=== PATIENT | female | born 1950 | race African-American/Black ===

== ENCOUNTER 2016-02-23 13:32 | Emergency (ER) | payer OTHER ==
[~2016-02-23] VITALS: Ht 162.6 cm; Wt 151.1 kg
--- NOTE | ~2016-02-23 | EKG ---
[facility] [place] [address] ELECTROCARDIOGRAM REPORT Name: LING CASTRO Room #: DEP [facility] [id number] Admission: 02/23/16 Attend Phys: Discharge: 02/23/16 Date of : 52 Report #: [id number] THIS REPORT FOR: //name// [facility] ED Test Date: 2016-02-23 Test Time: 14:04:53 Pat Name: LING CASTRO Department: Room: Gender: F Confectionery Cooker: Stacy SOLIS : 1950 Requested By: Quentin Mills Order Number: [id number] MD: Hosea Jose Measurements Intervals [place] Rate: 73 P: IL: QRS: -25 QRSD: 109 T: 92 QT: 392 QTc: 432 Interpretive Statements Sinus rhythm Borderline left axis deviation Low voltage, precordial leads No previous ECG available for comparison Electronically Signed On 02-24-2016 7:58:10 COMMAND AND CONTROL SPECIALIST by Hosea Jose [email or web address] <ELECTRONICALLY SIGNED> By: Hosea Jose MD, [facility] 02/24/16 0758 1404 1404 Hosea Jose MD, FACC /EPI
[~2016-02-23 13:32] MED LIST: ACETAMINOPHEN325 M1 PO; ADVAIR HFA115 MCG/21 INH; APAP500 PO; ASPIRIN EC81 M1 PO; AVELOX 400 MG400 MG PO; AVELOX400 MG PO; CALCIUM + VIT1 EACH; CARDURA XL8 MG PO; CARDURA8 MG PO; CARVEDILOL6.25 MG PO; CHLORTHALIDONE25 MG PO; CLARITIN10 M2 PO; COMBIGAN EYE DR10 ML OPHTHALMIC; COMBIVENT INH; COZAAR100 MG PO; CRESTOR10 MG PO; CYCLOBENZAPRINE5 MG PO; DIOVAN 80 MG TA80 M1 PO; DUONEB 2.5-0.5 M3 ML INH; ECONOPRED PLUS10 M1; FELODIPINE ER10 MG PO; FLONASE; FLONASE 0.05%50 MCG NASAL; GLYCOLAX POWDER17 G1 PO; HUMALOG100 UNIT/1 SUBQ; HYDROCODONE-APA1 TA1 PO; IBUPROFEN 400400 M1 PO; IBUPROFEN 800800 M1 PO; IRON325 PO; JANUVIA100 MG PO; LAMISIL250 MG PO; LANTUS SUBQ; LANTUS100 UNIT/M SQ; LASIX 40 MG TAB40 M1 PO; LOPRESSOR 50 MG50 M1 PO; LYRICA100 MG PO; MUCINEX TA600 MG/TA2 PO; MULTIVIT &0.5 MG/1 M; NEURONTIN 300300 M1 PO; NEURONTIN600 MG PO; NEXIUM40 MG PO; NORCO 5-325 TA1 EACH PO; NOVOLOG100 UNIT/1 SUBQ; NYSTATIN 1100000 U/M; OXYCODON-ACETA1 EAC1 PO; PLENDIL10 MG PO; POTASSIUM CHLO20 ME1 PO; PRED-FORTE OPHTH1 M1 OPHTHALMIC; PREDNISONE 10 M10 M1; PREDNISONE 10 M10 M1 PO; PREDNISONE 20 M20 M1 PO; PREDNISONE 5 MG5 M1 PO; PROVENTIL INH; TESSALON PERLE100 MG PO; TESSALON200 MG PO; TRAMADOL 50 MG50 MG PO; VALIUM5 MG PO; VITAMIN D400 UNI1 PO; ZETIA10 MG PO; ZPAK PO; ZYRTEC10 M2 PO
[2016-02-23 14:19] LABS: ABSOLUTE NEUTROPHILS 5.3 thou/uL (1.4-8.2); EOSINOPHILS 1.5 % (0.0-3.0); HEMATOCRIT 35.4 % (37.0-47.0); HEMOGLOBIN 11.1 gm/dL (12.0-15.0); MANUAL DIFF NO; MCH 27.1 pg (26.0-34.0); MCHC 31.3 % (28.0-37.0); MCV 86.8 fL (80.0-100.0); MONOCYTES 8.3 % (1.0-8.0); PLATELET COUNT 241 thou/uL (150-400); POLYS 69.2 % (36.0-66.0); RBC 4.08 mil/uL (4.20-5.00); RDW 14.8 % (10.5-14.5); WBC 7.6 thou/uL (4.0-11.0)
[2016-02-23 14:29] LABS: ANION GAP 6 mmol/L (7-16); BUN 27 mg/dL (7-18); CALCIUM 8.8 mg/dL (8.5-10.1); CHLORIDE 106 mmol/L (98-107); CO2 31 mmol/L (21-32); CREATININE 1.4 mg/dL (0.6-1.3); GLUCOSE 198 mg/dL (70-99); POTASSIUM 3.9 mmol/L (3.5-5.1); SODIUM 143 mmol/L (136-145)
[2016-02-23 14:36] LABS: ALBUMIN 3.3 g/dL (3.4-5.0); ALKALINE PHOSPHATASE 90 U/L (46-116); SGOT < 5 U/L (15-37); SGPT 14 U/L (30-65); TOTAL BILIRUBIN 0.3 mg/dL (<0.1-1.0); TROPONIN-I < 0.04 ng/mL (<0.04-0.07)
[2016-02-23] MEDS ORDERED: HYDROCODONE-AP1 EAC6 PO (15:12)
[2016-02-23 16:09] VITALS: BP 132/66
== END 2016-02-23 16:12 | disposition home or self-care (01) ==
LOC: ER 13:32
PROVIDERS: Physician Assistant
DX: S63.92XA Sprain of unspecified part of left wrist and hand, initial encounter (principal); S83.92XA Sprain of unspecified site of left knee, initial encounter; S20.219A Contusion of unspecified front wall of thorax, initial encounter; M54.5 Low back pain; M25.552 Pain in left hip; K21.9 Gastro-esophageal reflux disease without esophagitis; I10 Essential (primary) hypertension; E11.9 Type 2 diabetes mellitus without complications; Z90.710 Acquired absence of both cervix and uterus; Z88.5 Allergy status to narcotic agent; Z88.0 Allergy status to penicillin; W06.XXXA Fall from bed, initial encounter; Y93.89 Activity, other specified; Y92.89 Other specified places as the place of occurrence of the external cause; Y99.8 Other external cause status

== ENCOUNTER → 2016-06-23 | Outpatient (CLI) | payer OTHER ==
[~2016-06-23] MED LIST changes: +HYDROCODONE-AP1 EAC6 PO
== END ==
LOC: ULTRA 02:53
DX: R06.02 Shortness of breath (principal); M79.89 Other specified soft tissue disorders

== ENCOUNTER → 2016-07-10 | Outpatient (CLI) | payer OTHER | LOC: MRI 13:48 | DX: I63.9 Cerebral infarction, unspecified (principal); H53.8 Other visual disturbances ==

== ENCOUNTER 2016-10-11 16:20 | Emergency (ER) | payer OTHER ==
[~2016-10-11] VITALS: Ht 162.6 cm; Wt 105.7 kg
[2016-10-11 16:47] LABS: URINE BILIRUBIN NEGATIVE (Negative); URINE BLOOD TRACE (Negative); URINE COLOR YELLOW; URINE GLUCOSE-RANDOM* NEGATIVE (Negative); URINE KETONES NEGATIVE (Negative); URINE NITRITE NEGATIVE (Negative); URINE PROTEIN (DIPSTICK) TRACE (Negative); URINE SPECIFIC GRAVITY 1.015 (1.003-1.035); URINE UROBILINOGEN 0.2 E.U./dl (0.2-1.0)
[2016-10-11 18:17] LABS: ABSOLUTE NEUTROPHILS 6.7 thou/uL (1.4-8.2); BASOPHILS 0.8 % (0.0-2.0); EOSINOPHILS 0.6 % (0.0-3.0); HEMOGLOBIN 11.9 gm/dL (12.0-15.0); LYMPHOCYTES 17.2 % (24.0-44.0); MCH 26.7 pg (26.0-34.0); MCHC 31.4 g/dL (28.0-37.0); MCV 84.9 fL (80.0-100.0); MONOCYTES 8.2 % (1.0-8.0); PLATELET COUNT 233 thou/uL (150-400); POLYS 73.2 % (36.0-66.0); RBC 4.48 mil/uL (4.20-5.00); RDW 14.8 % (10.5-14.5); WBC 9.1 thou/uL (4.0-11.0)
[2016-10-11 18:19] LABS: MANUAL DIFF NO
[2016-10-11 18:24] LABS: CALCIUM 9.6 mg/dL (8.5-10.1); CREATININE 1.1 mg/dL (0.6-1.0); POTASSIUM 3.8 mmol/L (3.5-5.1)
[2016-10-11 18:30] LABS: ALBUMIN 3.7 g/dL (3.4-5.0); DIRECT BILIRUBIN 0.2 mg/dL (<0.1-0.3); TOTAL BILIRUBIN 0.8 mg/dL (<0.1-1.0); TOTAL PROTEIN 8.1 g/dL (6.4-8.2)
[2016-10-11] MEDS ORDERED: PHENAZOPYRIDIN200 M2 PO (19:01)
[2016-10-11 19:07] VITALS: BP 167/72
== END 2016-10-11 19:14 | disposition home or self-care (01) ==
LOC: ER 16:20
PROVIDERS: Nurse Practitioner
DX: R35.0 Frequency of micturition (principal); I10 Essential (primary) hypertension; K21.9 Gastro-esophageal reflux disease without esophagitis; E11.9 Type 2 diabetes mellitus without complications; Z90.710 Acquired absence of both cervix and uterus; Z88.0 Allergy status to penicillin; Z88.5 Allergy status to narcotic agent

== ENCOUNTER → 2017-03-29 | Outpatient (CLI) | payer OTHER ==
[~2017-03-29] MED LIST changes: +PHENAZOPYRIDIN200 M2 PO; +ZOFRAN ODT4 MG PO
== END ==
LOC: ULTRA 03-23 08:04
DX: N28.1 Cyst of kidney, acquired (principal)

== ENCOUNTER 2017-04-30 19:31 | Emergency (ER) | payer OTHER ==
[~2017-04-30] VITALS: Ht 162.6 cm; Wt 156.0 kg
[~2017-04-30 19:31] MED LIST changes: -ZOFRAN ODT4 MG PO
[2017-04-30] MEDS ORDERED: NORCO 5-325 TA1 EACH PO (20:34)
[2017-04-30] MEDS ORDERED: ZOFRAN ODT4 MG PO (20:34)
[2017-04-30 21:26] VITALS: BP 146/69
== END 2017-04-30 21:27 | disposition home or self-care (01) ==
LOC: ER 19:31
DX: S32.592A Other specified fracture of left pubis, initial encounter for closed fracture (principal); E11.9 Type 2 diabetes mellitus without complications; G47.30 Sleep apnea, unspecified; I10 Essential (primary) hypertension; K21.9 Gastro-esophageal reflux disease without esophagitis; Z88.5 Allergy status to narcotic agent; Z88.0 Allergy status to penicillin; Z79.4 Long term (current) use of insulin; W01.0XXA Fall on same level from slipping, tripping and stumbling without subsequent striking against object, initial encounter; Y93.89 Activity, other specified; Y92.89 Other specified places as the place of occurrence of the external cause; Y99.8 Other external cause status

== ENCOUNTER → 2017-07-06 | Outpatient (CLI) | payer OTHER ==
[~2017-07-06] MED LIST changes: +ZOFRAN ODT4 MG PO
== END ==
LOC: CAT 06-30 06:56
DX: M24.652 Ankylosis, left hip (principal); M16.12 Unilateral primary osteoarthritis, left hip; Z91.81 History of falling

== ENCOUNTER → 2018-02-25 | Outpatient (CLI) | payer OTHER | LOC: ULTRA 02-15 13:16 | DX: K76.0 Fatty (change of) liver, not elsewhere classified (principal) ==

== ENCOUNTER → 2018-03-22 | Outpatient (CLI) | payer OTHER | LOC: RAD 10:49 | DX: M17.0 Bilateral primary osteoarthritis of knee (principal); M25.761 Osteophyte, right knee; M25.762 Osteophyte, left knee; M25.462 Effusion, left knee ==

== ENCOUNTER 2018-03-28 14:23 | Emergency (ER) | payer OTHER ==
[~2018-03-28] VITALS: Ht 162.6 cm; Wt 149.7 kg
[2018-03-28] MEDS ORDERED: NORFLEX100 MG PO (16:59)
[2018-03-28] MEDS ORDERED: PREDNISONE 10 M10 MG PO (16:59)
[2018-03-28] MEDS ORDERED: HYDROCODONE-AP1 EAC6 PO (17:01)
[2018-03-28 17:16] VITALS: BP 189/83
== END 2018-03-28 17:17 | disposition home or self-care (01) ==
LOC: ER 14:23
DX: M54.31 Sciatica, right side (principal); E11.9 Type 2 diabetes mellitus without complications; G47.30 Sleep apnea, unspecified; I10 Essential (primary) hypertension; K21.9 Gastro-esophageal reflux disease without esophagitis; Z88.5 Allergy status to narcotic agent; Z88.0 Allergy status to penicillin; Z90.710 Acquired absence of both cervix and uterus; Z79.4 Long term (current) use of insulin

== ENCOUNTER → 2018-10-13 | Outpatient (CLI) | payer OTHER ==
[~2018-10-13] MED LIST changes: +NORFLEX100 MG PO; +PREDNISONE 10 M10 MG PO
== END ==
LOC: RAD 09:11
DX: Z12.31 Encounter for screening mammogram for malignant neoplasm of breast (principal)

== ENCOUNTER → 2018-12-30 | Outpatient (CLI) | payer OTHER | LOC: CAT 12-26 10:16 | DX: J98.4 Other disorders of lung (principal) ==

== ENCOUNTER 2019-03-22 14:00 | Emergency (ER) | payer OTHER ==
[~2019-03-22] VITALS: Ht 162.6 cm; Wt 146.5 kg
[2019-03-22] MEDS ORDERED: NORCO 5-325 TA1 EAC1 PO (15:56)
[2019-03-22] MEDS ORDERED: CYCLOBENZAPRINE5 MG PO (15:56)
[2019-03-22 16:27] VITALS: BP 159/74
== END 2019-03-22 16:30 | disposition home or self-care (01) ==
LOC: ER 14:00
DX: S16.1XXA Strain of muscle, fascia and tendon at neck level, initial encounter (principal); M54.89 Other dorsalgia; M79.632 Pain in left forearm; I10 Essential (primary) hypertension; R51 Headache; G47.30 Sleep apnea, unspecified; Z88.5 Allergy status to narcotic agent; Z88.0 Allergy status to penicillin; Z90.710 Acquired absence of both cervix and uterus; V89.0XXA Person injured in unspecified motor-vehicle accident, nontraffic, initial encounter; Y93.89 Activity, other specified; Y92.89 Other specified places as the place of occurrence of the external cause; Y99.8 Other external cause status

== ENCOUNTER → 2019-04-07 | Outpatient (CLI) | payer OTHER ==
[~2019-04-07] MED LIST changes: +NORCO 5-325 TA1 EAC1 PO
== END ==
LOC: NUC 11:23
DX: M53.82 Other specified dorsopathies, cervical region (principal)

== ENCOUNTER 2019-10-24 06:56 | Inpatient (IN) | payer OTHER ==
[~2019-10-24] VITALS: Ht 160 cm; Wt 145.1 kg
[2019-10-24] VITALS (18 sets, daily range): BP systolic 128–215; BP diastolic 55–162
[2019-10-24 07:47] LABS: BASOPHILS 0.4 % (0.0-2.0); HEMATOCRIT 38.8 % (37.0-47.0); HEMOGLOBIN 12.2 gm/dL (12.0-15.0); LYMPHOCYTES 9.7 % (24.0-44.0); MCH 28.3 pg (26.0-34.0); MCHC 31.4 g/dL (28.0-37.0); MCV 90.1 fL (80.0-100.0); MONOCYTES 5.8 % (1.0-8.0); PLATELET COUNT 199 thou/uL (150-400); POLYS 84.1 % (36.0-66.0); RDW 14.4 % (10.5-14.5); WBC 8.3 thou/uL (4.0-11.0)
[2019-10-24 07:54] LABS: BE(vivo) -9.4 mmol/L (-2 to +3); HCO3 15.2 mmol/L (22.0-26.0); PCO2 29.5 mmHg (35.0-45.0); PO2 57.3 mmHg (80.0-100.0); pH 7.331 (7.360-7.450); sO2 88.5 % (92.0-98.0)
[2019-10-24 07:56] LABS: ANION GAP 16 mmol/L (7-16); BUN 28 mg/dL (7-18); CALCIUM 8.5 mg/dL (8.5-10.1); CHLORIDE 103 mmol/L (98-107); CO2 21 mmol/L (21-32); CREATININE 1.9 mg/dL (0.6-1.0); GLUCOSE 403 mg/dL (74-106); POTASSIUM 3.8 mmol/L (3.5-5.1); SODIUM 140 mmol/L (136-145)
[2019-10-24] MEDS ORDERED: JANUVIA25 MG PO (07:59)
[2019-10-24 08:00] LABS: ALBUMIN 3.1 g/dL (3.4-5.0); DIRECT BILIRUBIN 0.2 mg/dL (<0.1-0.2); MAGNESIUM 1.9 mg/dL (1.8-2.4); TOTAL BILIRUBIN 0.4 mg/dL (0.2-1.0); TOTAL PROTEIN 7.3 g/dL (6.4-8.2)
[2019-10-24 08:05] LABS: TROPONIN-I <0.06 ng/mL (<0.06)
--- NOTE | 2019-10-24 08:19 | EKG ---
[facility] [place] [address] ELECTROCARDIOGRAM REPORT Name: LING CASTRO Room #: REG [facility]#: [id number] Admission: 10/24/19 Attend Phys: Discharge: Date of : 52 Report #: [id number] THIS REPORT FOR: cc: Leonardo Michel James A. DO Couchonnal, Luis F. MD ~ THIS REPORT FOR: //name// [facility] ED Test Date: 2019-10-24 Test Time: 07:26:07 Pat Name: LING CASTRO Department: Room: Gender: F Picture Hanger: GRIFFIN EASON : 1950 Requested By: Jesus Hernandez Order Number: [id number] MD: Beni Morocho Measurements Intervals [place] Rate: 104 P: 61 IA: 191 QRS: -30 QRSD: 85 T: 87 QT: 345 QTc: 454 Interpretive Statements Sinus tachycardia Left axis deviation Compared to ECG 02/23/2016 14:04:53 Sinus rhythm no longer present Electronically Signed On 10-24-2019 8:19:24 CDT by Beni Morocho [email or web address] <ELECTRONICALLY SIGNED> By: Beni Morocho MD 10/24/19818 5 5 Beni Morocho MD /DONALD
[2019-10-24 10:03] LABS: BE(vivo) -8.4 mmol/L (-2 to +3); HCO3 17.8 mmol/L (22.0-26.0); PCO2 38.9 mmHg (35.0-45.0); sO2 85.2 % (92.0-98.0)
[2019-10-24 10:05] LABS: PO2 55.5 mmHg (80.0-100.0); pH 7.278 (7.360-7.450)
[2019-10-24 12:35] LABS: BE(vivo) -7.5 mmol/L (-2 to +3); HCO3 18.3 mmol/L (22.0-26.0); PCO2 37.8 mmHg (35.0-45.0); PO2 69.3 mmHg (80.0-100.0); sO2 92.3 % (92.0-98.0)
[2019-10-24 12:36] LABS: pH 7.302 (7.360-7.450)
--- NOTE | 2019-10-24 17:05 | NUR ---
PT CAME FROM THE ER AT 1445 ACCOMPANIED BY CHAIR MECHANIC AND RT. PT ON BIPAP AT 100% FIO2. PT IS ALERT AND AWAKE. PT CONNECTED TO ICU MONITORS. SKIN ASSESSED BY TWO RN AT BEDSIDE. STEPHEN CATHETER PLACED. 1630: DR SALAS AT BEDSIDE. PT WANTS TO REST IN THE BIPAP FOR THE NIGHT. NO PLAN FOR INTUBATION AT THIS MOMENT.
--- NOTE | 2019-10-24 17:16 | NUR ---
PT DAUGHTER MOHAMUD WAS UPDATED ON PT TRANSFER TO ICU. PT DAUGHTER WAS GIVEN ICU PT CODE FOR TELEPHONE INQUIRIES.
--- NOTE | 2019-10-24 18:01 | NUR ---
pt new to icu today, covid positive. pt using bipap rt soa. cm spoke with daughter paulo via phone call. intro to cm and dcp. daughter is her caregiver though the whole person, daughter works nights to help miracle out during day. daughter gets tested covid at work rt in health care as well and has been negative. only had a cousin kids come over and then my cousin ended up positive for covid. has just had new cpap from [facility] and o2 has be service at home. has cane and 4ww and she has to take breaks and rest with walker, if she out in store has electric scooter she will use one. have to help her with bathing and dressing. she is able to feed her self. thank you for call and checking on family. have the code to talk with nurses thank you per daughter paulo. cm noted pt been to acute rehab here in past 2013. will cont following as needed for dc needs.
--- NOTE | 2019-10-24 20:37 | NUR ---
RECEIVED REPORT FROM PERLITA MULLER. ASSUMED PATIENT CARE AT THIS TIME. PER REPORT, PATIENT REQUESTING TO BE INTUBATED NOW AND WANTING TO SEE PHYSICIAN. THIS NURSE WENT IN AND ASSESSED PATIENT. PATIENT APPEARS VERY ANXIOUS. RR 16-18. OXYGEN SATs 95-96% ON BIPAP. PATIENT TALKING RAPIDLY AND CONCERNED THAT IF SHE IS INTUBATED THAT SHE WILL . ATTEMPTED TO REASSURE PATIENT AND INFORMED PATIENT THAT I WOULD SPEAK WITH THE PHYSICIAN REGARDING HER ANXIETY AND REQUEST A MED TO HELP HER RELAX. PATIENT AGREEABLE TO THIS. ASSISTED PATIENT TO TURN TO HER RIGHT SIDE AND COVERED HER UP WITH BLANKETS. TEMP WAS 97.0 F. PATIENT DENIES ANY OTHER NEEDS AT THIS TIME.
[2019-10-25] VITALS (109 sets, daily range): BP systolic 71–196; BP diastolic 45–124
[2019-10-25 04:43] LABS: BE(vivo) -4.5 mmol/L (-2 to +3); HCO3 17.9 mmol/L (22.0-26.0); PCO2 26.4 mmHg (35.0-45.0); pH 7.449 (7.360-7.450); sO2 80.4 % (92.0-98.0)
[2019-10-25 05:17] LABS: PO2 41.5 mmHg (80.0-100.0)
[2019-10-25 05:26] LABS: ABSOLUTE NEUTROPHILS 14.4 thou/uL (1.4-8.2); BASOPHILS 0.2 % (0.0-2.0); HEMOGLOBIN 12.9 gm/dL (12.0-15.0); LYMPHOCYTES 5.1 % (24.0-44.0); MCH 28.4 pg (26.0-34.0); MCHC 31.5 g/dL (28.0-37.0); MCV 90.1 fL (80.0-100.0); MONOCYTES 3.4 % (1.0-8.0); PLATELET COUNT 228 thou/uL (150-400); POLYS 91.3 % (36.0-66.0); RBC 4.55 mil/uL (4.20-5.00); RDW 14.4 % (10.5-14.5); WBC 15.8 thou/uL (4.0-11.0)
[2019-10-25 05:52] LABS: CALCIUM 8.2 mg/dL (8.5-10.1); CREATININE 1.4 mg/dL (0.6-1.0); MAGNESIUM 1.8 mg/dL (1.8-2.4); POTASSIUM 4.2 mmol/L (3.5-5.1)
[2019-10-25 10:41] LABS: BE(vivo) -5.6 mmol/L (-2 to +3); HCO3 18.9 mmol/L (22.0-26.0); PCO2 33.9 mmHg (35.0-45.0); PO2 58.8 mmHg (80.0-100.0); pH 7.365 (7.360-7.450)
[2019-10-25 11:00] LABS: HEMATOCRIT 36.7 % (37.0-47.0); HEMOGLOBIN 11.6 gm/dL (12.0-15.0); MCH 27.7 pg (26.0-34.0); MCHC 31.7 g/dL (28.0-37.0); MCV 87.5 fL (80.0-100.0); RBC 4.2 mil/uL (4.20-5.00); RDW 14.2 % (10.5-14.5); WBC 22.5 thou/uL (4.0-11.0)
--- NOTE | 2019-10-25 18:42 | NUR ---
ASSUMED CARE AT 0700. 0800 PT'S SPO2 84% NEW FOREHEAD SAT PROBE PLACE BY RT WHERE O2 SAT AFTER INITIAL PLACEMENT WENT UP TO 95% BUT DROPPED AGAIN INTO THE 80%. RT INCREASED PEEP FROM 16 TO 20 AND DECREASED TV FROM 650 TO 500.
--- NOTE | 2019-10-25 19:10 | NUR ---
1014-RN SPOKE TO PT'S DAUGHTER ON PHONE AND GAVE PT UPDATE. ALL QUESTIONS ANSWERED AT THIS TIME. 1348-PT'S DAUGHTER CALLED AND DAUGHTER GAVE CONSENT FOR CONVALESCENT PLASMA. 2 RN'S VERIFIED CONSENT VIA TELEPHONE.
--- NOTE | 2019-10-25 19:12 | NUR ---
1119- DR SALAS CALLED ABOUT PT'S OXYGEN LEVEL DECOMPENSATING. ORDERS RECIEVED FOR STAT REPEAT CHEST XRAY, SEE RESULTS. SEE MAR FOR NEW MEDICATION ORDERS.
--- NOTE | 2019-10-25 19:26 | NUR ---
RECEIVED REPORT FROM PARKER MULLER. ASSUMED PATIENT CARE AT THIS TIME.
[2019-10-26] VITALS (36 sets, daily range): BP systolic 111–156; BP diastolic 36–75
[2019-10-26 04:58] LABS: BE(vivo) -4.8 mmol/L (-2 to +3); HCO3 21.1 mmol/L (22.0-26.0); PCO2 42.1 mmHg (35.0-45.0); PO2 59.5 mmHg (80.0-100.0); pH 7.317 (7.360-7.450); sO2 88.7 % (92.0-98.0)
[2019-10-26 05:46] LABS: ABSOLUTE NEUTROPHILS 14.3 thou/uL (1.4-8.2); BASOPHILS 0.2 % (0.0-2.0); HEMATOCRIT 31.8 % (37.0-47.0); HEMOGLOBIN 10.1 gm/dL (12.0-15.0); LYMPHOCYTES 4.5 % (24.0-44.0); MCH 28.1 pg (26.0-34.0); MCHC 31.7 g/dL (28.0-37.0); MCV 88.7 fL (80.0-100.0); PLATELET COUNT 216 thou/uL (150-400); POLYS 92.3 % (36.0-66.0); RBC 3.58 mil/uL (4.20-5.00); RDW 14.3 % (10.5-14.5); WBC 15.5 thou/uL (4.0-11.0)
[2019-10-26 05:52] LABS: D-DIMER 3.83 ug/mLFEU (0.19-0.50); INR 1.1; PROTIME 11.5 Seconds (9.3-11.4)
[2019-10-26 05:55] LABS: ALBUMIN 2.6 g/dL (3.4-5.0); CALCIUM 7.8 mg/dL (8.5-10.1); CREATININE 1.6 mg/dL (0.6-1.0); TOTAL BILIRUBIN 0.5 mg/dL (0.2-1.0); TOTAL PROTEIN 6.8 g/dL (6.4-8.2)
[2019-10-26 07:09] LABS: GLYCOHEMOGLOBIN (HGB A1C) 8.3 % (4.8-5.6)
--- NOTE | 2019-10-26 10:58 | NUR ---
ASSESSMENTS AND INTERVENTIONS DOCCUMENTED. RN ASSUMING CARE AROUND 0715. DENTAL EQUIPMENT INSTALLER AND SERVICER RN IN ROOM APPLYING PRESSURE TO BLEEDING NOSE. REPORT RECIVED, PATIENT ASSESED. PATIENT'S RIGHT PUPIL DILATED AND NONE REACTIVE, LEFT ONE FIXED. DR. SALAS CALLED. ORDERS RECIEVED. STAT CT DONE. PATIENT BACK IN ROOM. STILL BLEEDING FROM MOUTH AND NOSE WITH MULTIPLE CLOTS. DAUGHTER CALLING AROUND 1055. UPDATED GIVEN.
--- NOTE | 2019-10-26 12:06 | HC ---
[facility] Dave Mims [place], [place] CONSULTATION Name: LING CASTRO Room #: 236-P [facility] M.R.#: [id number] Admission: 10/24/19 Attend Phys: Nathan Gar MD Discharge: Date of : 52 Report #: [id number] THIS REPORT FOR: cc: Leonardo Michel James A. DO Al-Mubaslat, Ahmad MD ~ CC: Nathan Roman DATE OF SERVICE: 10/25/2019 ENDOCRINE CONSULTATION NOTE CONSULTING PHYSICIAN: Dr. Gar. REASON FOR CONSULTATION: Uncontrolled type 2 diabetes mellitus, severe hyperglycemia. HISTORY OF PRESENT ILLNESS: This is a 69-year-old female patient whose medical background is significant for multiple medical issues including type 2 diabetes mellitus, hypertension, hyperlipidemia as well as COPD. The patient presented to our ER with complaints of abdominal discomfort in addition to a few bouts of nausea and vomiting. This was further complicated by issues of shortness of breath and persistent cough. Shortly after presentation, the patient developed acute respiratory failure and was intubated. The patient is known to have type 2 diabetes mellitus and is reportedly maintained on a combination of NovoLog insulin with meals, unknown dose as well as Lantus insulin 35 units at bedtime. There is no indication as to her baseline level of control, given that she is currently unable to give detailed history. She is known to have hyperlipidemia and is maintained on ezetimibe therapy. She is also known to have hypertension and is maintained on carvedilol 12.5 mg b.i.d. and Lasix 40 mg daily. REVIEW OF SYSTEMS: Obtained from the patient's medical records. GASTROINTESTINAL: Nausea, vomiting, abdominal discomfort. RESPIRATORY: Cough, shortness of breath. NEUROLOGY: Lightheadedness, dizziness, weakness. CARDIOLOGY: Shortness of breath and lower extremity edema, baseline issues with heart failure. CONSTITUTIONAL: Fatigue, tiredness, weakness. Otherwise, review of systems noncontributory other than those mentioned in HPI. PAST MEDICAL HISTORY: Type 2 diabetes mellitus, hypertension, hyperlipidemia, congestive heart failure, GERD, obstructive sleep apnea, peripheral diabetic [facility] [address] [place] [address] CONSULTATION Name: LING CASTRO Room #: 236-P [facility] [place] ..#: [id number] Admission: 10/24/19 Attend Phys: Nathan Gar MD Discharge: Date of : 52 Report #: [id number] neuropathy, osteoarthritis. OUTPATIENT MEDICATIONS: Include Januvia 25 mg daily, aspirin 81 mg daily, Nexium 40 mg daily, Neurontin 400 mg at bedtime, ibuprofen 800 mg q. 8 hours p.r.n., Lasix 40 mg daily, carvedilol 12.5 mg b.i.d., Cardura XL 8 mg twice daily, Zetia 10 mg daily, tramadol 50 mg b.i.d., [place] 7.5/325 mg p.o. q. 4 hours p.r.n. NovoLog insulin, unknown dose, possibly used in a sliding scale manner. Lantus insulin 35 units at bedtime. ALLERGIES: CODEINE and PENICILLIN. FAMILY HISTORY: Not obtainable due to the patient's intubated state. SOCIAL HISTORY: The patient has never been a smoker. Denies use of tobacco, alcohol or illicit drugs. PHYSICAL EXAMINATION: GENERAL: The patient is lying in bed, intubated, mechanically ventilated. VITAL SIGNS: Blood pressure 122/77 mmHg, heart rate is 87 beats per minute, respirations 52 per minute, temperature 36.7 degrees Celsius. CONSTITUTIONAL: Lying in bed, intubated, mechanically ventilated, not in apparent pain or distress. HEENT: Anicteric sclerae. NECK: Supple, no thyromegaly. CHEST: Noted for diminished air entry bilaterally with scattered rales and coarse breath sounds. No wheezes or crackles. HEART: Regular rate and rhythm. ABDOMEN: Soft, lax. No guarding. EXTREMITIES: Lower extremity exam edema. No skin breaks or ulcerations. NEUROLOGICAL EXAMINATION: Could not be performed because the patient is sedated. PSYCHOLOGICAL EVALUATION: Could not be performed because she is sedated. LABORATORY DATA: Blood glucose on arrival was 406 and has since been a bit over 300 mg/dL. Her lowest was just before this dictation at 306 mg/dL. Sodium 143, potassium 4.2, chloride 106, CO2 of 21, anion gap 16. BUN 20. Creatinine 1.4, her baseline is documented as 1.1-1.3. AST 33, lipase 146, total bilirubin 0.4, calcium 8.2, magnesium 1.8, alkaline phosphatase 55, ALT 22, total protein 7.3, albumin 3.1, EGFR 45. Lactic acid 1.8. CRP 174.1. White blood count 22.5, hemoglobin 11.6, hematocrit 36.7, platelets 224. COVID-19 positive. Hemoglobin A1c has been ordered and is pending. Hemoglobin A1c from 2013 was at 8.3%. A chest x-ray was noted for alveolar pulmonary infiltrates. ASSESSMENT AND PLAN: 1. Type 2 diabetes mellitus. The patient is maintained on a basal bolus [address] [address] CONSULTATION Name: LING CASTRO Room #: 236-P [facility] [place] .R.#: [id number] Admission: 10/24/19 Attend Phys: Nathan Gar MD Discharge: Date of : 52 Report #: [id number] regimen of insulin, although her NovoLog insulin might be taken strictly in the format of a sliding scale in addition to sitagliptin therapy. Hemoglobin A1c has been ordered and is pending and would be helpful in assessing the patient's overall level of control going forward. Currently, the patient is sedated and intubated, n.p.o. and not yet on form of parenteral nutrition. That said, I will resort to a combination of Humalog insulin, moderate intensity scale in addition to Lantus insulin, which was started at 25 units daily. Given the patient's current need for intravenous glucocorticoid therapy, her insulin needs might prove to be higher than usual going forward. However, we will base further therapeutic adjustments on her blood glucose monitoring to be obtained q. 6 hours. As we pursue active nutrition, her therapeutic needs and format would likely have to be changed. 2. Pneumonitis, respiratory failure. The patient was confirmed as having COVID-19 and developed acute respiratory failure shortly thereafter. She is currently treated with remdesivir, intravenous glucocorticoids, azithromycin and Rocephin. She is intubated and mechanically ventilated. The pulmonary team is following closely. 3. Hypertension. The patient's level of blood pressure control is adequate, she is to continue with the current regimen. I certainly appreciate this consultation by Dr. Gar. <ELECTRONICALLY SIGNED> By: Marcos Shi MD 10/26/19 1206 1511 1705 Marcos Shi MD /nt
--- NOTE | 2019-10-26 13:50 | 2DMMODE ---
[facility] [place] [address] 2 D/M-MODE ECHOCARDIOGRAM Name: LING CASTRO Room #: 236-P ADM IN M.R.#: [id number] Admission: 10/24/19 Attend Phys: Nathan Gar MD Discharge: Date of : 52 Report #: [id number] THIS REPORT FOR: cc: Leonardo Michel James A. DO Park, Jin S. MD ~ APPROVED REPORT Study performed: 10/26/2019 13:23:46 EXAM: Limited 2D, Doppler, and color-flow Echocardiogram Patient Location: ICU Room #: 236 Status: routine BSA: 1.93 HR: 76 bpm BP: 126/64 mmHg Rhythm: NSR Other Information Study Quality: Adequate Technically limited study due to morbid obesity. On vent.. Indications COVID POSITIVE. Abbreviated echo for pulmonary edema concern. Aortic Valve AoV Peak Napoleon.: 1.28 m/s AO Peak Gr.: 6.51 mmHg Left Ventricle The left ventricle is normal size. There is normal LV segmental wall motion. Left ventricular hypertrophy. Left ventricular systolic function is hyperdynamic. LVEF is 65-70%. Mild diastolic dysfunction is present (impaired relaxation pattern). Right Ventricle The right ventricle is normal size. The right ventricular systolic function is normal. [facility] The left atrium size is normal. The right atrium size is normal. [facility] [address] [address] 2 D/M-MODE ECHOCARDIOGRAM Name: LING CASTRO Room #: 236-P ADM IN M.R.#: [id number] Admission: 10/24/19 Attend Phys: Rosa Chinchilla Discharge: Date of : 52 Report #: [id number] Aortic Valve The aortic valve is normal in structure. No aortic regurgitation is present. There is no aortic valvular stenosis. Mitral Valve The mitral valve is normal in structure. There is no mitral valve regurgitation noted. No evidence of mitral valve stenosis. Tricuspid Valve The tricuspid valve is normal in structure. There is no tricuspid valve regurgitation noted. Unable to assess PA pressure. Great Vessels IVC is normal in size. Pericardium There is no pericardial effusion. <Conclusion> The left ventricle is normal size. Left ventricular hypertrophy. Left ventricular systolic function is hyperdynamic. Mild diastolic dysfunction is present (impaired relaxation pattern). The right ventricle is normal size. The left atrium size is normal. The aortic valve is normal in structure. There is no mitral valve regurgitation noted. There is no tricuspid valve regurgitation noted. <ELECTRONICALLY SIGNED> By: Phoenix Bates MD 10/26/19 1350 135 1350 Phoenix Bates MD /INF
[2019-10-26 16:41] LABS: HEMATOCRIT 30.8 % (37.0-47.0); HEMOGLOBIN 9.9 gm/dL (12.0-15.0)
[2019-10-27] VITALS (76 sets, daily range): BP systolic 82–171; BP diastolic 38–83
--- NOTE | 2019-10-27 01:00 | NUR ---
NO SEDATION VACATION DUE TO PATIENT'S VENT SETTINGS: PEEP 18, FI02 100%. SPOKE WITH DAUGHTER AT THIS TIME, GAVE UPDATE AND ANSWERED ALL QUESTIONS.
[2019-10-27 05:49] LABS: HCO3 20.5 mmol/L (22.0-26.0); PCO2 39.9 mmHg (35.0-45.0); PO2 73.8 mmHg (80.0-100.0); sO2 93.9 % (92.0-98.0)
[2019-10-27 05:50] LABS: pH 7.329 (7.360-7.450)
[2019-10-27 06:08] LABS: HEMATOCRIT 29.4 % (37.0-47.0); HEMOGLOBIN 9.5 gm/dL (12.0-15.0)
[2019-10-27 06:35] LABS: ALBUMIN 2.6 g/dL (3.4-5.0); CALCIUM 7.4 mg/dL (8.5-10.1); CREATININE 2.2 mg/dL (0.6-1.0); DIRECT BILIRUBIN 0.2 mg/dL (<0.1-0.2); POTASSIUM 3.1 mmol/L (3.5-5.1); TOTAL BILIRUBIN 0.4 mg/dL (0.2-1.0); TOTAL PROTEIN 6.1 g/dL (6.4-8.2)
--- NOTE | 2019-10-27 08:00 | NUR ---
INITIAL ASSESSMENT FOR THE SHIFT. PROPOFOL PAUSED. AFTER APPROX 10 MIN, PT IS WAKING UP. OPENING HER EYES WHEN HER NAME IS SAID. PT IS NOT FOLLOWING ANY COMMANDS BUT SHE IS MOVING BUE WEAKLY. NO MOVEMENT TO BLE. SUCTIONING LARGE BLOOD CLOTS OUT OF MOUTH. ANGEL RED BLOOD COMING FROM SUBGLOTTIC SUCTION CATHETER. NO ANGEL RED BLOOD COMING FROM ET SUCTIONING.
--- NOTE | 2019-10-27 08:23 | NUR ---
TALKED WITH [facility] PHARMASIST. STATES TO NOT GIVE 9 AM DOSE OF REMDESIVIR. HOLD FOR NOW.
--- NOTE | 2019-10-27 11:19 | NUR ---
If tube feeds started over the weekend, recommend vital high protein to reach goal of 40ml/hr
--- NOTE | 2019-10-27 12:08 | NUR ---
covid +, she remains intubated, tube feed for nutritional support. noted in note remdesivir am dose on hold. no anticpated dc over the weekend. cm called daughter paulo, left message requested call back. will cont following as needed for dc needs.
--- NOTE | 2019-10-27 18:00 | NUR ---
TALKED WITH DAUGHTER CARMEL ON THE PHONE. UPDATED ON PT PROGRESS AND CARE THROUGHOUT THE DAY.
--- NOTE | 2019-10-27 18:33 | NUR ---
PT PROGRESSING TOWARDS GOALS. PT PEEP AND FIO2 DOWN ON VENT. PT TOLERATING WELL. PT VSS. PT IS MORE AWAKE. OPENS EYES WHEN NAME IS SAID. LOCALIZES TO NOXIOUS STIMULI. PT STILL GETTING BLOOD CLOTS FROM ORAL SUCTIONING. NO BLOOD NOTED IN ENDOTRACHEAL SUCTIONING. INSULIN GTT STARTED TODAY. PROPOFOL AND FENTYANYL FOR SEDATION. NO BM. STEPHEN CATHETER INTACT.
[2019-10-27 20:52] LABS: CALCIUM 7.7 mg/dL (8.5-10.1)
[2019-10-27 20:55] LABS: POTASSIUM 2.7 mmol/L (3.5-5.1)
[2019-10-28] VITALS (107 sets, daily range): BP systolic 68–157; BP diastolic 30–92
--- NOTE | 2019-10-28 00:38 | NUR ---
ATTEMPTED TO CALL DAUGHTER MOHAMUD X2; PHONE RINGS 4X AND THEN STATES THAT THE NUMBER CANNOT BE CONNECTED TO AT THIS TIME
[2019-10-28 03:41] LABS: ALBUMIN 2.5 g/dL (3.4-5.0); DIRECT BILIRUBIN 0.2 mg/dL (<0.1-0.2); TOTAL BILIRUBIN 0.3 mg/dL (0.2-1.0); TOTAL PROTEIN 6.3 g/dL (6.4-8.2)
--- NOTE | 2019-10-28 09:38 | NUR ---
>>>0800 ASSESSMENTS DONE. PT PUT ON SEDATION VACATION. REMAINS UNAROUSABLE. RESPONDS TO PAIN STIMULI. PROPOFOL AND FENTANYL DRIPS TITRATED PER PROTOCOL. >>> 0830 PT TACHYPNEIC, FENTANYL TIOTRATED PER PROTOCOL. O2 SATS ON THE 80s. SUCTIONING DONE. BLOODY STINGED THICK SECCRETIONS NOTED. BROWN COFFEE GROUND COLORED OUTPUT NOTED ON OG TUBE. BLOOD SUGAR 81. INSULIN DRIP ON HOLD. DR SALAS ROUNDED ON PATIENT. UPDATED ON CONDITION. SEE NEW ORDERS.
[2019-10-28 09:42] LABS: HEMATOCRIT 27.4 % (37.0-47.0); HEMOGLOBIN 8.8 gm/dL (12.0-15.0); MCV 87.4 fL (80.0-100.0); PLATELET COUNT 150 thou/uL (150-400); RBC 3.13 mil/uL (4.20-5.00); RDW 14.6 % (10.5-14.5); WBC 25.3 thou/uL (4.0-11.0)
[2019-10-28 09:45] LABS: BE(vivo) -2.4 mmol/L (-2 to +3); HCO3 23.5 mmol/L (22.0-26.0); PCO2 45.3 mmHg (35.0-45.0); PO2 53.4 mmHg (80.0-100.0); pH 7.332 (7.360-7.450); sO2 85.4 % (92.0-98.0)
[2019-10-28 12:57] LABS: ABSOLUTE NEUTROPHILS 23.5 thou/uL (1.4-8.2)
[2019-10-28 12:58] LABS: ANISOCYTOSIS 1+
--- NOTE | 2019-10-28 16:52 | NUR ---
>>>1320 Pt tachypneic, RR AT 40, O2 SATS ON THE 70s. fentanyl and propofol drips titrated as per protocol. Suctioning done, HOB elevated. RT increased FIO2 to 100%. Suctioning done. Dr Roman present. >>>1400 pt stable, 02 at 90%. Continues on AC RR 24, PEEP 14, FIO2 100%, TV 500.
--- NOTE | 2019-10-28 17:16 | NUR ---
Family called. Updated on pt condition. Gave update on vent settings, sedation medication and insulin. All questions answered. Will continue to monitor.
--- NOTE | 2019-10-28 22:23 | NUR ---
PATIENT DESAT DOWN TO 86% SPONTANEOUSLY, REPOSITIONED FOR APPROPRIATE VENTILATION, PUT ON 100% ON VENT, INCREASED SEDATION FOR RR IN 30'S. BP DROPPED, LEVO STARTED TO MAINTAIN MAP >65 AND ALLOW SEDATION TO REMAIN AT CURRENT DOSE TO KEEP PATIENT FROM OVERBREATHING VENT AND TO PREVENT STACKING OF BREATHS. 02 SAT EVENTUALLY INCREASED TO 99%, RR 24, TV MORE APPROPRIATE AND SYNCHRONOUS WITH VENT. WILL TITRATE GTTS APPROPRIATE AND PER ORDERS.
[2019-10-29] VITALS (91 sets, daily range): BP systolic 73–162; BP diastolic 29–75
[2019-10-29 00:57] LABS: URINE BILIRUBIN NEGATIVE (Negative); URINE BLOOD NEGATIVE (Negative); URINE CLARITY SL CLOUDY; URINE COLOR YELLOW; URINE GLUCOSE-RANDOM* NEGATIVE (Negative); URINE KETONES TRACE (Negative); URINE LEUKOCYTES-REFLEX NEGATIVE (Negative); URINE NITRITE-REFLEX NEGATIVE (Negative); URINE PROTEIN (DIPSTICK) 1+ (Negative); URINE SPECIFIC GRAVITY 1.025 (1.005-1.035); URINE UROBILINOGEN 0.2 E.U./dl (0.2-1.0)
[2019-10-29 01:37] LABS: BACTERIA-REFLEX None Seen /HPF (None Seen); CASTS None Seen /LPF (None Seen); MUCUS 4-6 Moderate strn/LPF (None Seen); SQUAMOUS 0-3 Few /LPF (0-3); URINE RBC 0-2 Rare /HPF (0-2); URINE WBC-REFLEX 0-5 Rare /HPF (0-5)
[2019-10-29 01:38] LABS: AMORPHOUS URATES Few /LPF (None Seen); URIC ACID CRYSTALS 0-3 Few /LPF (None Seen)
[2019-10-29 03:46] LABS: BE(vivo) -7.3 mmol/L (-2 to +3); HCO3 19.3 mmol/L (22.0-26.0); sO2 86.4 % (92.0-98.0)
[2019-10-29 03:48] LABS: pH 7.269 (7.360-7.450)
[2019-10-29 04:48] LABS: HEMATOCRIT 27.7 % (37.0-47.0); HEMOGLOBIN 8.7 gm/dL (12.0-15.0); MCH 27.4 pg (26.0-34.0); MCHC 31.4 g/dL (28.0-37.0); MCV 87.3 fL (80.0-100.0); PLATELET COUNT 138 thou/uL (150-400); RBC 3.17 mil/uL (4.20-5.00); RDW 14.8 % (10.5-14.5); WBC 32.7 thou/uL (4.0-11.0)
[2019-10-29 04:52] LABS: ALBUMIN 2.3 g/dL (3.4-5.0); CALCIUM 7.4 mg/dL (8.5-10.1); CREATININE 2.8 mg/dL (0.6-1.0); DIRECT BILIRUBIN 0.3 mg/dL (<0.1-0.2); POTASSIUM 3.4 mmol/L (3.5-5.1); TOTAL BILIRUBIN 0.6 mg/dL (0.2-1.0); TOTAL PROTEIN 5.8 g/dL (6.4-8.2)
[2019-10-29 07:24] LABS: ABSOLUTE NEUTROPHILS 27.8 thou/uL (1.4-8.2); METAMYELOCYTES 2 %; MYELOCYTES 1 %
[2019-10-29 07:25] LABS: PLATELET ESTIMATE SLIGHTLY DECREASED
[2019-10-29 07:26] LABS: TOXIC GRANULATION SLIGHT
[2019-10-29 07:27] LABS: LARGE PLATELETS OCCASIONAL
--- NOTE | 2019-10-29 18:10 | NUR ---
ASSESMENTS AND INTERVENTIONS DOCCUMENTED. PATIENT RESTING THROUGH OUT SHIFT. PATIENT PROGRESSING TOWARDS GOALS AT THIS TIME EVIDENCE BY BEING TITRATED DONW ON FIO2 AND TOLERATING TUBE FEEDING.
--- NOTE | 2019-10-29 23:45 | NUR ---
234- Nurse placed call to Dr. Roman in regards to patient requiring bagging since 2334 with o2 sat 86%. When placed back on ventilator, oxygenation saturation decreases into the 70% range. Message left, will await his call. Heart rate 88, BP 84/37.
[2019-10-30] VITALS (97 sets, daily range): BP systolic 61–171; BP diastolic 21–72
--- NOTE | 2019-10-30 | NUR ---
PTS DAUGHTER HAYDER CALLED TO LET HER KNOW SHE IS DECLING. UNABLE TO KEEP O2 SATS UP. SHE WANTS PT TO REMAIN A FULL CODE AT THIS TIME.
--- NOTE | 2019-10-30 02:00 | NUR ---
SPOKE WITH PTS DAUGHTER SEVERAL TIMES TONIGHT ABOUT HER MOTHERS CRITICAL COND
--- NOTE | 2019-10-30 05:00 | NUR ---
PARKER DUBOIS SECURITY AND COMPLIANCE ANALYST CALLED PTS DAUGHTER OF HER MOTHERS GRAVE CONDITION.SHE OPTED TO MAKE PT A DNR. SHE WILL BE IN TO SEE HER MOTHER THIS AM. CLEARED BY NURSING SUPERVISIOR
--- NOTE | 2019-10-30 06:00 | NUR ---
VSS SINUS RHYTHM. LUNGS COARSE BILAT. LEVOPHED GTT 9 MCG FOR BP SUPPORT. O2 SAT 95 TO 88. 300 CC UO THIS SHIFT. DR SALAS GAVE ORDERS FOR LASIX 40 MG VERSED GTT AT 6 MG FOLR VENT MANAGEMENT. PT IS A DNR NOW. NOT PROGRESSING TOWARD GOALS. WILL CONT TO MONITOR.
[2019-10-30 06:14] LABS: ALBUMIN 2.3 g/dL (3.4-5.0); CALCIUM 7.2 mg/dL (8.5-10.1); POTASSIUM 3.6 mmol/L (3.5-5.1); TOTAL BILIRUBIN 0.6 mg/dL (0.2-1.0); TOTAL PROTEIN 5.7 g/dL (6.4-8.2)
[2019-10-30 06:25] LABS: CREATININE 3.8 mg/dL (0.6-1.0)
--- NOTE | 2019-10-30 08:26 | NUR ---
AT APPROX 2300 PT TURNED AND REPOSITIONED., O2 SAT DECREASED TO 70 % BAGGED WITH 100 % O2 LUNGS COARSE BILAT. REMAINS SEDATED WITH FENTANYL PROPOFOL LEVO GTT AT 5 MCG.
[2019-10-30 10:33] LABS: HEMATOCRIT 27.7 % (37.0-47.0); HEMOGLOBIN 8.7 gm/dL (12.0-15.0); MCH 27.3 pg (26.0-34.0); MCHC 31.4 g/dL (28.0-37.0); MCV 87.1 fL (80.0-100.0); RBC 3.18 mil/uL (4.20-5.00); RDW 15.7 % (10.5-14.5)
[2019-10-30 10:35] LABS: WBC 40.3 thou/uL (4.0-11.0)
[2019-10-30 10:44] LABS: INR 1.4
[2019-10-30 10:47] LABS: FIBRINOGEN 59.3 mg/dL (210-360)
[2019-10-30 11:13] LABS: ABSOLUTE NEUTROPHILS 37.1 thou/uL (1.4-8.2); ANISOCYTOSIS 2+; LARGE PLATELETS SEVERAL; METAMYELOCYTES 1 %; NUCLEATED RBCS 2 /100WBC; PLATELET COUNT 59 thou/uL (150-400); PLATELET ESTIMATE DECREASED; SCHISTOCYTES 2+
[2019-10-30 11:14] LABS: POIKILOCYTOSIS 2+
--- NOTE | 2019-10-30 12:57 | NUR ---
If tube feeds will continue, consider change in formula to vital high protein at goal 40ml/hr
--- NOTE | 2019-10-30 13:39 | NUR ---
miracle remains on vent, tube feed for nutritional support. covid +. has family support in area. left message for daughter paulo to call cm back. will cont following as needed for dc needs.
--- NOTE | 2019-10-30 16:51 | NUR ---
PT'S DAUGHTER WAS CALLED EARLY AM BY DRIVER STARTING GATE AND GIVEN PERMISSION TO COME VISIT PT CONDITION WAS WORSENING. PT'S DAUGHTER ARRIVED AT 0730 AND SAT IN CHAIR OUTSIDE OF PT'S GLASS ROOM DOORS. DAUGHTER SAT THERE UNTIL 0930 WHEN SHE STATED SHE HAD TO LEAVE TO GO TAKE CARE OF HER CHILDREN. PT'S DAUGHTER STATES SHE WAS ABLE TO SPEAK WITH DR. ESQUIVEL WHO ROUNDED WHILE DAUGHTER WAS HERE. PT'S DAUGHTER STATES SHE HAS NOT MADE A DECISION ON COMFORT CARE FOR HER MOTHER AND WAS GOING HOME TO THINK ABOUT IT. PT'S DAUGHTER CALLED AT 1648 FOR AND UPDATE AND RN SPOKE WITH HER ON PHONE AND ANSWERED ANY QUESTIONS SHE HAD. PT REMAINS ON VENTILATOR WITH AND FIO2 OF 100% AND PEEP OF 18. PT'S SPO2 REMAINS 85% AND BELOW, PHYSICIANS ARE AWARE. PT REMAINS SEDATED ON PROPOFOL AND VERSED GTT ALONG WITH FENTANYL. BILAT SOFT RESTRAINTS REMOVED PT IS NOT PULLING AT LINES AT THIS TIME. PT REMAINS ON INSULIN GTT AND ACCUCHECKS HAVE BEEN HOURLY DO TO BLOOD SUGAR NOT BEING IN TARGET RANGE. INSULIN GTT TITRATED ORDERED. PT DOES NOT TOLERATE PHYSICAL TURNS SO ICU BED PLACED IN LATERAL ROTATION MODE TO KEEP PT OFF OF NATURAL PRESSURE POINTS. PT TOLERATING TUBE FEEDS AT 20CC/HR BUT NOT 400 CC H2O FLUSHES Q6 HOURS. HIGH RESIDUALS OF 25O CC 4 HOURS AFTER 400CC H20 FLUSH.
[2019-10-31] VITALS (56 sets, daily range): BP systolic 36–151; BP diastolic 12–62
[2019-10-31 01:18] LABS: HEMATOCRIT 27.7 % (37.0-47.0); HEMOGLOBIN 8.8 gm/dL (12.0-15.0); MCH 27.6 pg (26.0-34.0); MCHC 31.6 g/dL (28.0-37.0); RBC 3.18 mil/uL (4.20-5.00)
[2019-10-31 01:20] LABS: MCV 87.2 fL (80.0-100.0); RDW 16.4 % (10.5-14.5)
[2019-10-31 01:35] LABS: CALCIUM 7.2 mg/dL (8.5-10.1); CREATININE 3.9 mg/dL (0.6-1.0); POTASSIUM 3.9 mmol/L (3.5-5.1)
--- NOTE | 2019-10-31 01:54 | NUR ---
This RN assumed care at 1900. Upon arrival patient was on 100% FiO2 and a PEEP of 18 and patient was satting in the low 80's and 70's. Around 0000, pt has been satting 99-100% on the monitor, with no vent changes. At 0038 patient had a 20 run of v-tach. Pressures continued to drop as well. Patient returned to normal sinus rhythm and is currently on levophed for pressure support. This RN talked to Dr. Cedeno regarding patient status including, increasing pressure support, run of v-tach, low urine output and vent settings. Dr. Cedeno gave orders for an electrolyte redraw. This RN spoke to patients daughter, Mitra, at 0100 regarding patients declining status. Daughter understands patient status and possible . On my 0000 patient scored a 3 on the GCS as well. Patient is not responsive to any painful stimuli, no verbal response and no eye opening. The left pupil is sluggish to react and the right pupil is fixed. This RN consulted [facility] on patients status. They said they will not follow this patient since they are COVID positive, but to still call with cardiac for possible eye/ tissue donation. Patient currently stable but continuing to monitor closely.
--- NOTE | 2019-10-31 06:31 | NUR ---
Patient still fluctuating oxygen sats in the 80's and 90's. Pt did have a low temperature 95.1 then 96.1, so this RN put the bear hugger on the patient on high and the next temperature I got was 97.1. I kept the bear hugger on the pt at the lowest setting. Pt still gradually requiring more blood pressure support to maintain a MAP of 65. Pt remains on 100% FiO2 and a PEEP of 18. Pt did not tolerate any movement and therefore we did not turn her, she is on CLRT and has all extremities elevated. Minimal urine output throughout the night. Blood sugars have begun to normalized throughout the night. Pt still remains critical requiring very high respiratory support and gtts, therefore this patient is not progressing towards goals.
--- NOTE | 2019-10-31 13:17 | NUR ---
ASSUMED CARE @ 0700 10/31/19, PT ASSESSMENTS AND VSS COMPLETE PER ICU PROTOCOL. PT ENCOUNTERED ON THE VENT, FENTANYL, VERSED, AND PROPOFOL FOR VENT MANAGEMENT. GCS 3, NO GAG OR COUGH REFLEX. PT ON 100% FIO2 WITH PEEP OF 16. DR SHRESTHA AND SIERRA ROUNDED THIS AM. DR ESQUIVEL CALLED DTR TO UPDATE ON STATUS, PT NOW COMFORT CARE, PT'S DTR AT BEDSIDE, ORDERS PLACED BY DR ESQUIVEL. PT EXTUBATED @ 1315.
--- NOTE | 2019-10-31 13:34 | NUR ---
THIS APPLICATIONS SCIENTIST WAS PAGED AT 1231 HOURS FOR FAMILY SUPPORT OF DAUGHTER FOR HER MOTHER WHO WAS GOING TO BE EXTUBATED. WE DID LIFE REVIEW AND DISCUSSED HER DAUGHTERS MEMORIES OF HER. wE DISCUSSED FAMILY SUPPORT THAT THE DAUGHTER MIGHT HAVE SHE IS AN ONLY CHILD. WE HAD A TIME OF PRAYER. THIS APPLICATIONS SCIENTIST WAS IN ICU AREA AND CAME BACK IN ABOUT 10 MINUTES AND THE PATIENT HAD ALREADY . WE HAD A TIME OF PRAYER REMEBERING HER MOTHER AND PRAYING FOR THE BALANCE OF THE FAMILY.
== END 2019-10-31 23:23 | DRG 870 ==
LOC: ER 06:56 → ICU 10:23 → EROBS 10:23 → ICU 14:39
PROVIDERS: Emergency Medicine; Internal Medicine Pulmonary Disease; Nurse Practitioner; Pediatrics; Specialist; ADMIT Hospitalist; ATTEND Hospitalist
DX: A41.9 Sepsis, unspecified organism (principal); U07.1 COVID-19; N17.0 Acute kidney failure with tubular necrosis; J96.01 Acute respiratory failure with hypoxia; J69.0 Pneumonitis due to inhalation of food and vomit; I13.0 Hypertensive heart and chronic kidney disease with heart failure and stage 1 through stage 4 chronic kidney disease, or unspecified chronic kidney disease; E44.0 Moderate protein-calorie malnutrition; Z68.43 Body mass index [BMI] 50.0-59.9, adult; J44.0 Chronic obstructive pulmonary disease with (acute) lower respiratory infection; E78.5 Hyperlipidemia, unspecified; Z66 Do not resuscitate; I50.9 Heart failure, unspecified; G47.33 Obstructive sleep apnea (adult) (pediatric); E11.42 Type 2 diabetes mellitus with diabetic polyneuropathy; M19.90 Unspecified osteoarthritis, unspecified site; E11.22 Type 2 diabetes mellitus with diabetic chronic kidney disease; N18.3 Chronic kidney disease, stage 3 (moderate); E66.01 Morbid (severe) obesity due to excess calories; E87.6 Hypokalemia; K21.9 Gastro-esophageal reflux disease without esophagitis; D64.9 Anemia, unspecified; R65.20 Severe sepsis without septic shock; Z90.710 Acquired absence of both cervix and uterus; Z79.899 Other long term (current) drug therapy; Z79.4 Long term (current) use of insulin; Z88.0 Allergy status to penicillin
CPT/HCPCS: 10078